=== PATIENT | female | born 1960 | race Caucasian/White ===

== ENCOUNTER → 2019-10-11 10:40 | Outpatient (BNVA) | payer MEDICARE, OTHER, SELFPAY | PROVIDERS: Family Provider Nurse Practitioner Family; PCP Nurse Practitioner Family; Visit Provider Specialist | DX: G43.711 Chronic migraine without aura, intractable, with status migrainosus (principal); Z87.891 Personal history of nicotine dependence | CPT/HCPCS: 64615; J0585 ==

== ENCOUNTER → 2020-01-17 10:14 | Outpatient (BNVA) | payer MEDICARE, OTHER, SELFPAY | PROVIDERS: Family Provider Nurse Practitioner Family; PCP Nurse Practitioner Family; Visit Provider Specialist | DX: G43.711 Chronic migraine without aura, intractable, with status migrainosus (principal) | CPT/HCPCS: 64615; J0585 ==

== ENCOUNTER → 2020-04-03 09:57 | Outpatient (BNVA) | payer MEDICARE, OTHER, SELFPAY | PROVIDERS: Family Provider Nurse Practitioner Family; PCP Nurse Practitioner Family; Visit Provider Nurse Practitioner Family | DX: I10 Essential (primary) hypertension (principal); E78.2 Mixed hyperlipidemia; E55.9 Vitamin D deficiency, unspecified; Z79.899 Other long term (current) drug therapy; E03.9 Hypothyroidism, unspecified | CPT/HCPCS: 36415; 80053; 80061; 81001; 82306; 83036; 84443; 85025 ==

== ENCOUNTER → 2020-06-19 11:57 | Outpatient (BNVA) | payer MEDICARE, OTHER, SELFPAY | PROVIDERS: Family Provider Nurse Practitioner Family; PCP Nurse Practitioner Family; Visit Provider Specialist | DX: G43.711 Chronic migraine without aura, intractable, with status migrainosus (principal) | CPT/HCPCS: 64615; 96372; J0585; J1885 ==

== ENCOUNTER → 2020-07-03 09:46 | Outpatient (BNVA) | payer MEDICARE, OTHER, SELFPAY | PROVIDERS: Family Provider Nurse Practitioner Family; PCP Nurse Practitioner Family; Visit Provider Nurse Practitioner Family | DX: D64.9 Anemia, unspecified (principal); W57.XXXA Bitten or stung by nonvenomous insect and other nonvenomous arthropods, initial encounter | CPT/HCPCS: 82607; 82746; 86618; 86666; 86757 ==

== ENCOUNTER → 2020-09-11 12:44 | Outpatient (BNVA) | payer MEDICARE, OTHER, SELFPAY | PROVIDERS: Family Provider Nurse Practitioner Family; PCP Nurse Practitioner Family; Visit Provider Specialist | DX: G43.711 Chronic migraine without aura, intractable, with status migrainosus (principal); Z87.891 Personal history of nicotine dependence | CPT/HCPCS: 64615; J0585 ==

== ENCOUNTER → 2021-04-28 11:37 | Outpatient (BNVA) | payer MEDICARE, OTHER, SELFPAY | PROVIDERS: Family Provider Nurse Practitioner Family; PCP Nurse Practitioner Family; Visit Provider Nurse Practitioner Family | DX: I10 Essential (primary) hypertension (principal); E03.9 Hypothyroidism, unspecified; E55.9 Vitamin D deficiency, unspecified; Z79.899 Other long term (current) drug therapy; Z13.6 Encounter for screening for cardiovascular disorders; Z86.19 Personal history of other infectious and parasitic diseases | CPT/HCPCS: 80053; 80061; 81003; 82306; 83036; 84439; 84443; 84481; 85025; 86618; 86666; 86757 ==

== ENCOUNTER → 2021-09-04 11:38 | Outpatient (BNVA) | payer MEDICARE, SELFPAY | PROVIDERS: Family Provider Nurse Practitioner Family; PCP Nurse Practitioner Family; Visit Provider Nurse Practitioner Family | DX: J02.9 Acute pharyngitis, unspecified (principal); F51.01 Primary insomnia | CPT/HCPCS: 87070; 87880 ==

== ENCOUNTER 2022-10-27 11:51 | Outpatient (CLI) | payer MEDICARE, SELFPAY ==
--- NOTE | 2022-10-27 12:02 | MM_ITS ---
WS: [id number] Bilateral screening 3D tomosynthesis digital mammogram, 10/27/2022 Clinical Data: SCREENING Comparison: 11/06/2020, 08/25/2017, 04/07/2017, 03/04/2016, 12/24/2014, 06/21/2013, 05/24/2012, 08/03/2007, 1 . Findings: The breast parenchymal pattern shows fat replacement. No spiculated masses or clustered calcification s are seen. There are no secondary signs of carcinoma. MM/[id number] Impression: 1. Negative bilateral mammogram unchanged. 2. Recommend annual screening mammograms. BIRADS: 1-Negative FOLLOW UP: 1 Year Follow-up The CAD billing checker was used.
== END 2022-10-27 11:52 | disposition home or self-care (01) ==
PROVIDERS: PCP Nurse Practitioner; Visit Provider Nurse Practitioner Family
DX: Z12.31 Encounter for screening mammogram for malignant neoplasm of breast (principal)
CPT/HCPCS: 77063; 77067

== ENCOUNTER → 2022-12-22 09:53 | Outpatient (BNVA) | payer MEDICARE, SELFPAY | PROVIDERS: PCP Nurse Practitioner; Visit Provider Podiatrist Foot & Ankle Surgery | DX: M20.42 Other hammer toe(s) (acquired), left foot (principal); M20.41 Other hammer toe(s) (acquired), right foot; M21.41 Flat foot [pes planus] (acquired), right foot; M21.42 Flat foot [pes planus] (acquired), left foot; M71.30 Other bursal cyst, unspecified site | CPT/HCPCS: 73630; 99203 ==

== ENCOUNTER → 2023-04-04 09:54 | Outpatient (BNVA) | payer MEDICARE, SELFPAY | PROVIDERS: PCP Nurse Practitioner; Visit Provider Internal Medicine Rheumatology | DX: F51.01 Primary insomnia (principal); Z11.59 Encounter for screening for other viral diseases; M45.6 Ankylosing spondylitis lumbar region; Z79.899 Other long term (current) drug therapy; M16.12 Unilateral primary osteoarthritis, left hip; M19.041 Primary osteoarthritis, right hand; M19.072 Primary osteoarthritis, left ankle and foot | CPT/HCPCS: 72170; 73130; 73630; 80076; 82306; 82565; 85025; 85651; 86140; 86200; 86431; 86480; 86704; 86803; 86812; 87340; 99204 ==

== ENCOUNTER 2023-06-08 14:22 | Outpatient (CLI) | payer MEDICARE, SELFPAY ==
--- NOTE | 2023-06-08 14:29 | USCV_ITS ---
Teri Helm Age: 63 Gender: F : 1960 Exam Date: 06/08/2023 14:51 Ordering Phys: Pamella Duncan BUSINESS INFORMATION MANAGER Technologist: [place] [facility] [place]ST PAIN BP: 127 / 77 HR: 90 Rhythm: Sinus Technical Quality: Adequate MEASUREMENTS (Male / Female) Normal Values 2D ECHO LVOT Diameter 2.0 cm LV Ejection Fraction MOD 2C 59.8 % LV Ejection Fraction 2C AL 57.5 % LA Diameter 4.0 cm LA Width 1.8 cm LA Height 4.2 cm RA Width 2.1 cm RA Height 3.9 cm Aorta at Sinotubular Diameter 2.3 cm IVC Diameter 1.4 cm M-MODE Aortic Annulus Diameter 2.7 cm LA Ao Ratio MM 1.5 MV E Point Septal Separation 0.4 cm DOPPLER AV Peak Velocity 155.7 cm/s LVOT Peak Velocity 107.0 cm/s AV Area Cont Eq vti 2.3 cm squared AV Area Cont Eq pk 2.2 cm squared MV Peak Velocity 108.0 cm/s MV Area PHT 5.0 cm squared Mitral E to A Ratio 0.4 MV E' Velocity 26.5 cm/s Mitral E to MV E' Ratio 5.5 Mitral E to LV E' Lateral Ratio 4.5 Mitral E to LV E' Septal Ratio 7.1 TR Peak Velocity 189.4 cm/s TR Peak Gradient 14.3 mmHg TR Mean Velocity 143.9 cm/s TR Mean Gradient 9.1 mmHg TR Velocity Time Integral 45.6 cm TV Peak E Velocity 53.0 cm/s Right Atrial Pressure 3.0 mmHg Pulmonary Artery Systolic Pressu 17.3 mmHg PV Peak Velocity 116.0 cm/s RV Acceleration Time 0.1 s RV Ejection Time 0.3 s RV AcT/ET 0.4 FINDINGS Left Ventricle Normal left ventricular size, systolic function and wall thickness, with no regional wall motion abnormalities. Grade I/IV diastolic dysfunction (abnormal relaxation filling pattern), normal to mildly elevated filling pressures. Left ventricular ejection fraction is estimated at 60 %. Right Ventricle The right ventricle is normal in size and function. Right Atrium The right atrium is normal in size. Left Atrium The left atrium is normal in size. There is an atrial septal aneurysm without a shunt. Mitral Valve Structurally normal mitral valve without significant stenosis or prolapse. There is no mitral regurgitation. Aortic Valve Structurally normal aortic valve without significant sclerosis or stenosis. There is no aortic regurgitation. Tricuspid Valve Structurally normal tricuspid valve without significant stenosis or regurgitation. Pulmonary artery systolic pressure is normal. Pulmonic Valve Pulmonic valve not well visualized. Pericardium Normal pericardium without effusion. Aorta Normal ascending aorta dimension. IVC The inferior vena cava appears normal. CONCLUSIONS Normal left ventricular size, systolic function and wall thickness, with no regional wall motion abnormalities. Grade I/IV diastolic dysfunction (abnormal relaxation filling pattern), normal to mildly elevated filling pressures. Left ventricular ejection fraction is estimated at 60 %. The left atrium is normal in size. There is an atrial septal aneurysm without a shunt. There are no prior echocardiogram studies to compare. Dr. Tereso Blue MD (Electronically Signed) Final Date: 08 June 2023 16:25 S
== END 2023-06-08 14:23 | disposition home or self-care (01) ==
PROVIDERS: PCP Nurse Practitioner; Visit Provider Nurse Practitioner Family
DX: R07.9 Chest pain, unspecified (principal); I51.89 Other ill-defined heart diseases; I25.3 Aneurysm of heart
CPT/HCPCS: 93306

== ENCOUNTER 2023-06-22 09:13 | Outpatient (CLI) | payer MEDICARE, SELFPAY ==
[2023-06-22 09:56] VITALS: BMI 34.0
--- NOTE | 2023-06-22 09:59 | ECG_ITS ---
[facility] Test Date: 2023-06-22 Pat Name: Teri Helm Department: Room: Gender: Female Fluid Pump Operator: Mitesh Santa : 1960 Requested By: Pamella Duncan Order Number: [id number] Mark MD: Christos Meier M.D. Interpretive Statements NAME OF STUDY: LEXISCAN SESTAMIBI STRESS TEST INDICATION: Chest Pain, PROCEDURE: At the baseline, the EKG revealed normal sinus rhythm with a normal ST Ts. Minimal left axis deviation. The baseline heart was 74 bpm with a blood pressue of 140/86 mm of Hg Lexiscan was infused over a period of 20 seconds. A total of 0.4 milligrams of Lexiscan was infused. The stress phase was continued for a total of 5 minutes. Heart rate at the end of the stress phase was 97 bpm with a blood pressure 124/78 mm of Hg. The EKG at the peak infusion revealed no significant changes. Sestamibi was injected 20 seconds after the Lexiscan infusion. Heart rate at the end of the recovery phase was 93 bpm with a blood pressure of 130/87 mm of Hg. CONCLUSION: 1. No significant EKG changes with the LexiScan infusion 2. No LexiScan induced chest pain or cardiac arrhythmia 3. Normal blood pressure and heart rate response 4. Sestamibi/sestamibi perfusion scan pending; see separate report. Electronically Signed On 06-23-2023 23:51:10 CDT by Christos Meier M.D. [id number]
--- NOTE | 2023-06-22 10:00 | NMCV_ITS ---
NM dong perf SPECT r/s* [id number] Teri Helm Age: 63 Gender: F : 1960 Exam Date: 06/22/2023 10:37 Ordering Phys: Pamella Duncan ARTIFICIAL TEETH INSPECTOR Technologist: SHARA Layton Exam Location: [facility] Indications: CHEST PAIN STRESS TEST Please see separate stress test report in [facility] for full findings IMAGE PROTOCOL Rest/Stress 1 Lexiscan Day Radiopharmaceutical Dose (mCi) Administration Site Administered by Rest: Tc-99m 10.6 IV SHARA Graves Sestamibi Stress:Tc-99m 32.9 IV SHARA Graves Sestamibi Rest: 22-Jun-2023 60 Discovery 630 Stress: 22-Jun-2023 30 Discovery 630 0.4mg Lexiscan. Images obtained in supine and prone position. SPECT RESULTS Technical Quality: Excellent Raw Data Analysis: Normal Image Corrections: No attenuation or motion correction applied Summed Stress Score: 3 Summed Rest Score: 5 Summed Difference Score: 0 PERFUSION FINDINGS Small area of minimal to moderately decreased aseptic in the mid inferolateral and apical lateral region. No significant reversibility was noted in this region. FUNCTIONAL RESULTS (calculated via Gated SPECT) Stress Image LV EF (%): 62 Stress EDV (mL):78 TID: 0.91 Stress ESV (mL):30 FUNCTIONAL FINDINGS: Segmental wall motion analysis revealing no gross wall motion abnormalities IMPRESSIONS 1. Myocardial perfusion imaging revealing small area of minimal to moderately decreased persistent tracer uptake in the inferolateral and apical lateral region, suggestive of myocardial scarring versus attrition artifact. 2. Normal LV ejection fraction of 62%. 3. LV wall motion analysis revealing no gross wall motion abnormalities. 4. Normal LV volume Low probability for coronary ischemia, based on the above findings Dr Christos Meier MD FACC (Electronically Signed) Final Date: 22 June 2023 17:01 S
[2023-06-22] MEDS: regadenoson 0.4 Mg/5 ml Syringe IVP (11:14)
[2023-06-22 11:37] VITALS: BP 130/87; PULSE 94
== END 2023-06-22 09:14 | disposition home or self-care (01) ==
LOC: CDL 09:13
PROVIDERS: PCP Nurse Practitioner; Visit Provider Nurse Practitioner Family
DX: R07.9 Chest pain, unspecified (principal)
CPT/HCPCS: 36415; 78452; 93017; 96374; 99204; A9500; J2785

== ENCOUNTER 2023-07-05 09:40 | Outpatient (CLI) | payer MEDICARE, SELFPAY ==
--- NOTE | 2023-07-05 10:00 | CT_ITS ---
WS: [id number] CTA THORACIC AORTA WITH AND WITHOUT HISTORY: chest pain/ rule out dissection TECHNIQUE: CT imaging of the thorax is performed with and without contrast. After noncontrast imaging is performed, CT angiogram is performed during injection of Omnipaque 350; 100 mL IV.. Sagittal and coronal reconstructions, sagittal and coronal MIP imaging is submitted. All CT scans at [facility] use at least one of these dose optimization techniques: automated exposure control; mA and/or k V adjustment per patient size (includes targeted exams where dose is matched to clinical indication); or iterative reconstruction. DLP: 767.50 mGy.cm COMPARISON: None available. Good opacification and enhancement of the thoracic aorta. Maximum diameter is 3.3 cm of the ascending aorta. Small amount of calcified plaque. There is no aneurysm or dissection. Normal appearance of th e descending aorta. Great vessels arise normally. LEFT vertebral artery also arises directly from the arch. Normal sized pulmonary artery. No pulmonary embolism. Heart is normal size. No pericardial or pleural effusions. Lungs are clear. No nodule, mass or pneumonia. No adrenal mass. Status post lap band. Prior cholecystectomy. Sclerotic focus posterior fourth LEFT r ib. Probably representing a bone island. No osseous destruction. IMPRESSION: 1. No thoracic aortic dissection or aneurysm. 2. Mild aorta atherosclerotic disease. 3. No pneumonia. 4. Prior cholecystectomy and lap band.
[2023-07-05 10:28] LABS: Blood Urea Nitrogen 16 mg/dL (8-23)
[2023-07-05] MEDS: iohexol 350 mg/mL 500 mL Btl (per mL) IV (10:39)
== END 2023-07-05 09:41 | disposition home or self-care (01) ==
LOC: RAD 09:41
PROVIDERS: PCP Nurse Practitioner; Visit Provider Internal Medicine Cardiovascular Disease
DX: R07.9 Chest pain, unspecified (principal); I70.0 Atherosclerosis of aorta
CPT/HCPCS: 71275; 82565; 84520; Q9967

== ENCOUNTER 2023-08-09 15:30 | Outpatient (CLI) | payer MEDICARE, SELFPAY ==
--- NOTE | 2023-08-09 15:49 | MR_ITS ---
WS: [id number] MRI CERVICAL SPINE NONCONTRAST HISTORY: CERVICAL RADICULOPATHY COMPARISON: None available. Technique: Multiplanar, multisequence noncontrast imaging of the cervical spine. Motion artifact on the sagittal sequences. Slight straightening of the normal cervical lordosis. 3 mm retrolisthesis of C5 and 2 mm retrolisthesis of C6. No fractures or marrow edema. Disc spaces are al l mildly narrowed and desiccated. Signal within the cervical cord is normal. Visualized posterior fossa is unremarkable. Craniocervical junction, C1 and C2 relationship, odontoid process and soft tissues are normal. C2-C3: Normal. C3-C4: Moderate bilateral facet arthritis and mild foraminal narrowing due to small osteophytes. C4-C5: Shallow central disc protrusion. Moderate bilateral facet joint arthritis with moderate forami nal narrowing C5-C6: Diffuse annular disc bulging with a central broad-based protrusion. Moderate bilateral facet a rthritis. Mild central with moderate to severe foraminal stenosis. C6-C7: Mild annular disc bulging and osteophytic ridging. Moderate bilateral foraminal stenosis. C7-T1: Mild foraminal stenosis. Facet arthritis. T2-T3: Shallow central disc protrusion does not contact the cord. Paravertebral soft tissues are negative. IMPRESSION: 1. Quality of this examination is compromised by motion and body habitus. 2. No high-grade central stenosis. 3. Multilevel facet joint arthritis with foraminal stenosis as above. 4. C5-6 mild central with moderate to severe foraminal stenosis. 5. C4-5 and C6-7: Moderate bilateral foraminal stenosis. 6. C3-4 and C7-T1: Mild bilateral foraminal stenosis and facet arthritis.
== END 2023-08-09 15:31 | disposition home or self-care (01) ==
PROVIDERS: PCP Nurse Practitioner; Visit Provider Nurse Practitioner Family
DX: M54.12 Radiculopathy, cervical region (principal); M48.02 Spinal stenosis, cervical region; M47.892 Other spondylosis, cervical region
CPT/HCPCS: 72141

== ENCOUNTER → 2023-10-24 09:54 | Outpatient (BNVA) | payer MEDICARE, SELFPAY | PROVIDERS: PCP Nurse Practitioner; Visit Provider Anesthesiology Pain Medicine | DX: M79.18 Myalgia, other site (principal); M51.17 Intervertebral disc disorders with radiculopathy, lumbosacral region; M50.90 Cervical disc disorder, unspecified, unspecified cervical region; M47.812 Spondylosis without myelopathy or radiculopathy, cervical region; M48.02 Spinal stenosis, cervical region | CPT/HCPCS: 20553; 99204; J1030; J3490 ==

== ENCOUNTER → 2023-11-14 10:49 | Outpatient (BNVA) | payer MEDICARE, SELFPAY | PROVIDERS: PCP Nurse Practitioner Family; Visit Provider Internal Medicine Rheumatology | DX: M19.90 Unspecified osteoarthritis, unspecified site (principal); R51.9 Headache, unspecified; G89.29 Other chronic pain; Z86.19 Personal history of other infectious and parasitic diseases | CPT/HCPCS: 36415; 80076; 82565; 85025; 86140; 99214 ==

== ENCOUNTER → 2023-11-23 10:31 | Outpatient (BNVA) | payer MEDICARE, SELFPAY | PROVIDERS: PCP Nurse Practitioner Family; Visit Provider Anesthesiology Pain Medicine | DX: M51.17 Intervertebral disc disorders with radiculopathy, lumbosacral region (principal); M50.90 Cervical disc disorder, unspecified, unspecified cervical region; M47.812 Spondylosis without myelopathy or radiculopathy, cervical region; M48.02 Spinal stenosis, cervical region | CPT/HCPCS: 99214 ==

== ENCOUNTER → 2024-10-24 15:16 | Outpatient (BNVA) | payer MEDICARE, SELFPAY | PROVIDERS: PCP Nurse Practitioner Family; Visit Provider Specialist | DX: G56.03 Carpal tunnel syndrome, bilateral upper limbs; M50.90 Cervical disc disorder, unspecified, unspecified cervical region; Z46.89 Encounter for fitting and adjustment of other specified devices | CPT/HCPCS: 73130; 99204 ==